=== PATIENT | male | born 1990 | race Caucasian/White ===

== ENCOUNTER 2017-08-17 10:48 | Emergency (ER) | payer MEDICAID ==
[2017-08-17 11:02] VITALS: BP 155/66; TEMP 98.4; O2SAT 97
[2017-08-17] MEDS ORDERED: NS 1,000 ML IV ONE (11:45)
[2017-08-17 12:06] VITALS: PULSE 61; RESP 16
--- NOTE | 2017-08-17 12:31 | EDPHY ---
H & P Time Seen by Provider: 08/17/17 11:10 HPI/ROS: CHIEF COMPLAINT: Reaction to marijuana, dizziness HISTORY OF PRESENT ILLNESS: 27-year-old male presents to the emergency department by ambulance feeling like he is reacting to some marijuana that he used. The patient states that he had a very concentrated dose that he was dabbing and felt dizzy and lightheaded. He denies any other substance abuse. He did not have a syncopal episode. He denies chest pain or difficulty breathing. Denies abdominal pain. No fevers or chills. REVIEW OF SYSTEMS: Constitutional: No fever, no chills. Eyes: No double or blurry vision. ENT: No sore throat. Respiratory: No cough, no shortness of breath. Cardiac: No chest pain. Gastrointestinal: No abdominal pain, vomiting or diarrhea. Genitourinary: No dysuria. Musculoskeletal: No neck or back pain. Skin: No rashes. Neurological: No headache. Past Medical/Surgical History: Marijuana use Social History: Single Smoking Status: Former smoker Physical Exam: General Appearance: Alert, no distress. Vital signs are stable. Eyes: Pupils equal and round. Extraocular motions are all intact. ENT: Mouth: Mucous membranes moist. Respiratory: No wheezing, rhonchi, or rales, lungs are clear to auscultation. Cardiovascular: Regular rate and rhythm. Gastrointestinal: Abdomen is soft and nontender, no masses, no rebound or guarding, bowel sounds normal. Neurological: Alert and oriented x 3, cranial nerves II through XII grossly intact Skin: Warm and dry, no rashes. Musculoskeletal: Nontender to palpate along the cervical, thoracic or lumbar spine. Neck is supple. Extremities: Full range of motion and no peripheral edema. Psychiatric: Patient is oriented X 3, there is no agitation. Constitutional: Initial Vital Signs Temperature (C) 36.9 C 08/17/17 10:57 Heart Rate 63 08/17/17 10:57 Respiratory Rate 20 08/17/17 10:57 Blood Pressure 155/66 H 08/17/17 10:57 O2 Sat (%) 97 08/17/17 10:57 O2 Delivery Mode Room Air Allergies/Adverse Reactions: No Known Allergies Allergy (Unverified 04/28/14 09:33) Home Medications: Medication Instructions Recorded NK [No Known Home Meds] 04/28/14 Medical Decision Making ED Course/Re-evaluation: 27-year-old male presents to the emergency department after having dizziness from smoking marijuana. He was given IV normal saline and observed. He was feeling better. He will be discharged home. Differential Diagnosis: Dizziness including but not limited to peripheral and central causes of vertigo , orthostatic causes including dehydration, and blood loss. Departure - Departure Disposition: Home, Routine, Self-Care Clinical Impression: Marijuana ingestion Condition: Good Instructions: Dizziness (ED) Additional Instructions: Return to the emergency department if you have any change in symptoms or if you feel worse in any way. Referrals: MELINDA ODELL [Primary Care Provider] - 1-2 days without fail
== END 2017-08-17 12:38 | disposition home or self-care (01) ==
LOC: EDUNIT#
DX: T40.7X4A Poisoning by cannabis (derivatives), undetermined, initial encounter (principal); Z87.891 Personal history of nicotine dependence

== ENCOUNTER 2017-08-17 12:45 | Emergency (ER) | payer MEDICAID ==
[2017-08-17 12:57] VITALS: BP 150/70; PULSE 101; RESP 16; TEMP 97.9; O2SAT 96
--- NOTE | 2017-08-17 14:01 | ASMTCMCOM ---
CM Note CM Note Notes: Pt seen in the ED waiting room at the request of ED air operations manager. Pt was discharged and was waiting to be readmitted because he was sill experiencing dizziness Pt was angry with an interaction between he and security and he and charge entry with regard to charging his phone after his discharge. He did not agree with security knowing why he was in the ED. This SW spoke with pt. who indicated he felt that he was being judged for his use of medical marijuana. When asked how he would like the situation resolved he stated that he would like an apology and to have his phone charged. Pt. phone was charged to 10% and pt was provided the pt. customer engagement representative contact information. Pt was calm and appropriate with this SW and decided that he felt well enough to leave the hospital. No additional follow up. Date Signed: 08/17/2017 02:00 PM Electronically Signed By:Xochitl Ramsey LCSW
== END 2017-08-17 14:13 | disposition left against medical advice (07) ==
DX: Z53.21 Procedure and treatment not carried out due to patient leaving prior to being seen by health care provider (principal)